=== PATIENT | female | born 1970 | race Asian ===

== ENCOUNTER 2022-03-30 09:50 | Outpatient (CLI) | payer BC | END 2022-03-30 19:33 | disposition home or self-care (01) | LOC: RESP 09:50 | PROVIDERS: ATTEND Family Medicine | DX: I10 Essential (primary) hypertension (principal); R73.03 Prediabetes; Z68.42 Body mass index [BMI] 45.0-49.9, adult | CPT/HCPCS: 80061; 83036; 84439; 84443; 93005 ==